=== PATIENT | female | born 1980 | race Caucasian/White ===

== ENCOUNTER → 2020-03-07 09:21 | Outpatient (CLI) | payer OTHER, SELFPAY ==
--- NOTE | ~2020-03-07 | US_ITS ---
EXAMINATION: US pelvic complete DATE: 03/07/2020 09:39 INDICATION: Pelvic pain, fibroids TECHNIQUE: Multiple transabdominal and endovaginal sonographic images of the pelvis were obtained. COMPARISON: None. FINDINGS: The uterus measures 8.7 x 5.7 x 6.2 cm. There is a 4.2 x 3.3 x 4.1 cm isoechoic mass of the posterior uterine body which has the appearance of an intramural fibroid. The endometrial complex me asures 10 mm. The right ovary measures 3.9 x 1.3 x 2.4 cm. The left ovary measures 3.0 x 1.5 x 2.2 cm . There is normal vascular flow in the ovaries. There is no free fluid in the pelvis. IMPRESSION: 1. 4.2 cm intramural fibroid of the posterior uterine body. Reviewed, dictated and finalized at location A.
== END ==
PROVIDERS: PCP Physician Assistant; Visit Provider Nurse Practitioner
DX: R10.2 Pelvic and perineal pain (principal); D25.9 Leiomyoma of uterus, unspecified
CPT/HCPCS: 76856

== ENCOUNTER 2020-04-05 02:36 | Outpatient (CLI) | payer OTHER, SELFPAY ==
[2020-04-05 19:52] LABS: SARS-CoV-2 RNA PCR Negative
== END 2020-04-05 02:37 | disposition home or self-care (01) ==
LOC: ANHCOVIDDT 02:36
PROVIDERS: PCP Physician Assistant; Visit Provider Obstetrics & Gynecology Gynecology
DX: Z01.812 Encounter for preprocedural laboratory examination (principal); Z20.828 Contact with and (suspected) exposure to other viral communicable diseases
CPT/HCPCS: 87635; C9803; U0003

== ENCOUNTER 2020-04-08 00:39 | Day surgery (SDC) | payer OTHER, SELFPAY ==
[2020-03-25 13:29] VITALS: BMI 24.3
[2020-04-08] MEDS: LACTATED RINGERS 1,000 ML 30 ML IV CONT (06:40)
[2020-04-08] MEDS: ACETAMINOPHEN 500 MG TABLET 1000 MG PO (06:43)
[2020-04-08 06:49] VITALS: BP 133/85; PULSE 78; RESP 18; TEMP 37.1; O2SAT 99
--- NOTE | 2020-04-08 07:00 | P.PNAN_ITS ---
Anes - Initial Pre Proc Eval Procedure: Operation Date: 04/08/20 08:15 Proposed Procedures p Hysteroscopy, Dilation and Curettage - Mary Alexander MD Date/Time: 04/08/20 07:00 Surgeon: Mary Alexander MD Pre Op Diagnosis: menorrhaghia Patient Data Age: 39 Gender: F Height: 1.57 m Weight: 62 kg Last Vital Signs Temp 37.1 C 04/08/20 06:49 Pulse 78 04/08/20 06:49 Resp 18 04/08/20 06:49 BP 133/85 04/08/20 06:49 Pulse Ox 99 04/08/20 06:49 Allergies Allergy/AdvReac Type Severity Reaction Status Date / Time latex Allergy rash, skin Verified 04/08/20 06:53 peeling codeine AdvReac Nausea and Verified 04/08/20 06:53 Vomiting Home Medications Medication Instructions Recorded Confirmed Type cholecalciferol (vitamin D3) 125 mcg PO DAILY 03/25/20 04/08/20 History [Vitamin D3] Patient hx anesthesia problems: none Family hx anesthesia problems: none [facility] Past Medical History Medical History (Updated 04/08/20 @ 07:00 by Jesus Frank DO) Anxiety Social History Social History Smoking status: Never smoker Alcohol intake: current Drinks per week: 5 Substance use: current Substance use type: marijuana Last use: 02/2020 Spiritual care concerns: No Anes - Eval Final PreProcedure Day of Procedure 04/08/20 07:00 Patient weight: normal Heart: regular rate and rhythm Lungs: clear to auscultation and normal air movement Airway: Mallampati scale class II Neurological: alert and oriented Last oral intake: >/= 8 hours ASA classification: II Emergent: no Anesthetic plan: proceed Anesthesia type and monitoring: general GIVS and standard monitoring Informed Consent: The patient's anesthetic plan and its attendant risks and benefits were discussed with the patient/family/POA. Questions were solicited and answers provided to the satisfaction of the patient/family/POA.
--- NOTE | 2020-04-08 07:30 | WPDHPUPDATE1 ---
History and Physical Update Update Date/Time: 04/08/20 07:30 History and Physical has been reviewed, including an updated exam of the patient. There are NO changes in the patient's condition. Risks, benefits, and alternatives have been discussed and questions answered. Patient agrees to proceed with procedure.
--- NOTE | 2020-04-08 07:30 | PM.HPGS ---
History of Present Illness History of Present Illness Consent: Risks, benefits, and alternatives have been discussed and questions answered. Patient agrees to proceed with procedure. Chief complaint: menorrhaghia Narrative: Farideh Kerr is a 39 year old female with regular but heavy cycles with worsening over last year. Patient also with increase in her cramping with cycles. Pelvic u/s with 4 cm intramural fibroid. Recommend further work up with hysteroscopy and D&C. Risks of infection, bleeding, perforation, and fluid imbalance reviewed. Possible pathology also discussed. Patient states understanding and agrees to proceed. [facility] Past Medical History Medical History (Updated 04/08/20 @ 07:35 by Mary Alexander MD) Anxiety (normal spontaneous vaginal delivery) x 3 With G3-2012 had cervical tear and hemorrhage required 4 units of blood Surgical History Surgical History (Updated 04/08/20 @ 07:34 by Mary Alexander MD) S/P laparoscopic cholecystectomy Social History Social History Smoking status: Never smoker Alcohol intake: current Drinks per week: 5 Substance use: current Substance use type: marijuana Last use: 02/2020 Spiritual care concerns: No Meds Home Medications and Allergies Home Medications Medication Instructions Recorded Confirmed Type cholecalciferol (vitamin D3) 125 mcg PO DAILY 03/25/20 04/08/20 History [Vitamin D3] Allergies Allergy/AdvReac Type Severity Reaction Status Date / Time latex Allergy rash, skin Verified 04/08/20 06:53 peeling codeine AdvReac Nausea and Verified 04/08/20 06:53 Vomiting Vital Signs Vital Signs - 24 hr 04/08/20 06:49 Temperature 98.7 F Pulse Rate 78 Respiratory Rate 18 Blood Pressure 133/85 Pulse Oximetry 99 Exam Const: General: healthy appearing and alert Orientation/consciousness: patient oriented x3 Resp: Effort & Inspection: normal respiratory effort Auscultation: clear to auscultation bilaterally Cardio: Rate: regular rate Rhythm: regular rhythm GI: GI Palp: Yes Soft to palpation, No Tenderness to palpation present (GI) and No Palpable mass present : External Female Exam: normal external appearance Speculum Exam - Vagina: normal appearance of the vagina and normal vaginal discharge Speculum Exam - Cervix: normal appearance of the cervix Bimanual exam- vagina & uterus: uterine size normal and other (firm posteriorly) Bimanual Exam- Adnexa, other: normal adnexae and No adnexal tenderness Neuro: General: patient oriented x3 Assessment and Plan Assessment and plan (1) Menorrhagia: Code(s): N92.0 - Excessive and frequent menstruation with regular cycle Status: Acute Assessment and Plan: Plan to proceed with hysteroscopy and D&C
--- NOTE | 2020-04-08 08:48 | PM.PROC ---
Procedure Note - Detailed Date of procedure: 04/08/20 Pre-op diagnosis: menorrhaghia Post-op diagnosis: same Description of procedure: The patient was taken to the operating room and placed in the dorsal lithotomy position under anesthesia. The bivalve speculum was placed in the vagina and the cervix grasped on the anterior lip with a tenaculum. The cervix is attempted to be sounded and the internal os is noted to be stenotic. The os Finders are utilized and the os is able to be entered. The uterus is then sounded to 8cm. The cervix is serially dilated to an 8 Hegar. The diagnostic hysteroscope is placed and no abnormalities are visualized. The instruments are removed and the medium sharp curette is used to curette the endometrium until a good uterine cry was noted in all areas. All instruments were then removed. Sponge instrument needle counts are correct per the OR staff. Anesthesia: MAC and local Surgeon: Mary Alexander MD Estimated blood loss (mL): 5 Drains: No Packing: No Pathology: yes (endometrial curettings) Complications: No immediate complications Condition: stable Disposition: PACU Findings: stenotic internal os; grossly normal appearing endometrium
[2020-04-08 08:49] VITALS: BP 136/91; PULSE 72; RESP 16; O2SAT 100
[2020-04-08 09:15] VITALS: BP 140/92; PULSE 64; RESP 16
[2020-04-08 09:40] VITALS: BP 133/81; PULSE 63; RESP 16
== END 2020-04-08 09:47 | disposition home or self-care (01) ==
PROVIDERS: PCP Physician Assistant; Visit Provider Obstetrics & Gynecology Gynecology
PROC: 0U5B8ZZ Destruction of Endometrium, Via Natural or Artificial Opening Endoscopic (ICD-10-PCS; CPT 58563; principal; 2020-04-08 08:15)
DX: N92.0 Excessive and frequent menstruation with regular cycle (principal); F12.90 Cannabis use, unspecified, uncomplicated
CPT/HCPCS: 58558; 88305; A9270; J1885; J2250; J2405; J2704; J3010; J7030; J7120

== ENCOUNTER → 2022-07-30 08:46 | Outpatient (CLI) | payer OTHER, SELFPAY ==
--- NOTE | ~2022-07-30 | MMUS_ITS ---
EXAMINATION: MM diagnostic denisha BI w kris, US breast LT limited HISTORY: Migratory bilateral breast pain. TECHNIQUE: Craniocaudal, mediolateral, and mediolateral oblique 3-D tomosynthesis images of the breas ts were performed and synthetic 2-D images were generated. CAD analysis was submitted and interpreted . High resolution limited left breast ultrasound was performed. COMPARISON: None, baseline BREAST PARENCHYMAL COMPOSITION: The breasts are heterogeneously dense, which may obscure small masses . FINDINGS: MAMMOGRAPHIC FINDINGS: No suspicious mass, calcification, or architectural distortion are identified in either breast to sug gest malignancy. No mammographic correlate is identified for the reported pain in either breast. An a symmetry of the left breast on the craniocaudal view disperses with spot compression. ULTRASOUND: There is no evidence of focal abnormal solid or cystic mass in the vicinity of the mammographic findi ng in question in the left breast. IMPRESSION: 1. No specific mammographic or sonographic correlate is identified for the patient's breast pain. Fur ther evaluation at this time should be based on clinical assessment. Continued follow-up physical exa mination is recommended. 2. Recommend routine screening mammography in one year. BI-RADS Category 1: Negative Reviewed, dictated and finalized at location A. S OPERATIONS IMPRESSION: 1. No specific mammographic or sonographic correlate is identified for the alexy ent's breast pain. Further evaluation at this time should be based on clinical assessment. Continued follow-up physical examination is recommended. 2. Recommend routine screening mammography in one year. BI-RADS Category 1: Negative
== END ==
PROVIDERS: PCP Physician Assistant; Visit Provider Nurse Practitioner
DX: N64.4 Mastodynia (principal)
CPT/HCPCS: 76642; 77062; 77066; G0279

== ENCOUNTER 2023-10-25 10:59 | Outpatient (CLI) | payer OTHER, SELFPAY ==
--- NOTE | ~2023-10-25 | MM_ITS ---
EXAMINATION: MM screening denisha BI w kris HISTORY: Screening TECHNIQUE: Craniocaudal and mediolateral oblique 3-D tomosynthesis images were obtained and synthetic 2-D images were generated. CAD analysis was submitted and interpreted. COMPARISON: 07/30/2022 BREAST PARENCHYMAL COMPOSITION: Dense: The breasts are heterogeneously dense, which may obscure small masses FINDINGS: There is no evidence of suspicious mass, calcification, or architectural distortion to sugg est malignancy in either breast. There has been no suspicious interval change. IMPRESSION: 1. No mammographic evidence of malignancy. 2. Recommend routine screening mammography in one year. BI-RADS Category 1: Negative Reviewed, dictated and finalized at location B.
== END 2023-10-25 11:00 ==
PROVIDERS: PCP Nurse Practitioner; Visit Provider Nurse Practitioner
DX: Z12.31 Encounter for screening mammogram for malignant neoplasm of breast (principal)
CPT/HCPCS: 77063; 77067